=== PATIENT | male | born 1965 | race Caucasian/White ===

== ENCOUNTER 2020-10-25 13:45 | Inpatient (IN) ==
[2020-10-25] MEDS ORDERED: *HR* OxyCODONE/APAP 10/325 TABLET PO PRN (16:35)
[2020-10-25] MEDS ORDERED: Fluticasone Propionate Nasal 50 MCG/SPRAY BOTTLE NS PRN (16:35)
[2020-10-25] MEDS ORDERED: Nystatin Cream 15 GM TUBE TP PRN (16:35)
[2020-10-25] MEDS ORDERED: NON-FORMULARY MEDICATION 1 EACH EACH (Olopatadine Hcl [Pataday] 2.5 ML Drops) BOTH EYES PRN (16:35)
[2020-10-25] MEDS ORDERED: Dextrose Gel 15 GM/37.5 ML TUBE PO PRN ×2 (16:39)
[2020-10-25] MEDS ORDERED: *HR* Dextrose 50 % in Water (Vial) 50 ML VIAL IVP PRN (16:39)
[2020-10-25] MEDS ORDERED: D5% in Water 1,000 ML IVC PRN (16:39)
[2020-10-25] MEDS: Cholecalciferol (D-3) 1,000 UNIT (25MCG) TABLET PO SCH (17:19)
[2020-10-25 17:43] LABS: INR 2.1; Prothrombin Time 23.9 Seconds (9.4-12.1)
[2020-10-25] MEDS ORDERED: Warfarin perPT PO PRN (18:00)
[2020-10-25] MEDS ORDERED: Warfarin 5 MG, Warfarin 2.5 MG PO SCH (18:30)
[2020-10-25] MEDS: Sucralfate 1 GM TABLET PO SCH (20:59)
[2020-10-25] MEDS ORDERED: *HR* Glimepiride 4 MG TABLET PO SCH (21:00)
[2020-10-25] MEDS: Latanoprost 2.5 ML BOTTLE BOTH EYES SCH (21:01)
[2020-10-25] MEDS: Ondansetron ODT 4 MG TAB.RAPDIS SL PRN (23:12)
[2020-10-26 07:02] LABS: Basophils % 0.7 %; Eosinophils # 0.1 K/mcL (0.0-0.6); Eosinophils % 2.8 %; Hematocrit 37.6 % (37.5-50.1); Hemoglobin 11.9 g/dL (12.9-16.9); Immature Granulocytes % 0.4 % (0-4); Lymphocytes # 1.3 K/mcL (0.6-4.6); Lymphocytes % 27.5 %; Mean Corpuscular HGB Conc 31.6 g/dL (31.6-35.5); Mean Corpuscular Hemoglobin 32.2 pg (28.0-33.3); Mean Corpuscular Volume 101.9 fL (83.0-100.0); Mean Platelet Volume 8.8 fL (9.4-12.4); Monocytes # 0.6 K/mcL (0.0-1.3); Neutrophils # 2.6 K/mcL (1.6-8.9); Platelet Count 233 K/mcL (140-400); Red Blood Count 3.69 M/mcL (4.19-5.50); Red Cell Distribution Width 14.9 % (11.5-14.5); Segmented Neutrophils % 56.6 %; White Blood Count 4.6 K/mcL (4.3-11.1)
[2020-10-26 07:08] LABS: INR 2.1; Prothrombin Time 23.7 Seconds (9.4-12.1)
[2020-10-26 07:31] LABS: Calcium 8.5 mg/dL (8.6-10.3)
[2020-10-26] MEDS: Insulin LISPRO 300 UNITS/3 ML VIAL SUBQ SCH ×3 (08:33→16:32)
[2020-10-26] MEDS: Sucralfate 1 GM TABLET PO SCH ×4 (08:37→20:25)
[2020-10-26] MEDS: allopurinoL 100 MG TABLET PO SCH (08:37)
[2020-10-26] MEDS: Aspirin Enteric Coated 81 MG Tablet PO SCH (08:37)
[2020-10-26] MEDS: Loratadine 10 MG TABLET PO SCH (08:38)
[2020-10-26] MEDS: *HR* Glimepiride 2 MG TABLET PO SCH ×2 (08:39→17:10)
[2020-10-26] MEDS ORDERED: Furosemide 40 MG TABLET PO SCH (09:00)
[2020-10-26] MEDS ORDERED: *HR* OxyCODONE/APAP 10/325 TABLET PO PRN (10:52)
[2020-10-26] MEDS ORDERED: *HR* Warfarin 3 MG TABLET PO ONE (18:00)
[2020-10-26] MEDS ORDERED: *HR* OxyCODONE Immed Rel 5 MG TABLET PO PRN (20:14)
[2020-10-26] MEDS: Latanoprost 2.5 ML BOTTLE BOTH EYES SCH (20:26)
[2020-10-27 06:58] LABS: INR 2.1; Prothrombin Time 23.8 Seconds (9.4-12.1)
[2020-10-27] MEDS: Loratadine 10 MG TABLET PO SCH (08:45)
[2020-10-27] MEDS: Aspirin Enteric Coated 81 MG Tablet PO SCH (08:46)
[2020-10-27] MEDS: *HR* Glimepiride 2 MG TABLET PO SCH (08:46)
[2020-10-27] MEDS: Furosemide 20 MG TABLET PO SCH (08:46)
[2020-10-27] MEDS: allopurinoL 100 MG TABLET PO SCH (08:46)
[2020-10-27] MEDS: Insulin LISPRO 300 UNITS/3 ML VIAL SUBQ SCH ×3 (08:47→17:00)
[2020-10-27] MEDS: Sucralfate 1 GM TABLET PO SCH ×4 (09:50→21:51)
[2020-10-27] MEDS: *HR* OxyCODONE Immed Rel 5 MG TABLET PO PRN ×2 (09:55→21:51)
[2020-10-27] MEDS ORDERED: *HR* Warfarin 3 MG TABLET PO ONE (18:00)
[2020-10-27] MEDS: Latanoprost 2.5 ML BOTTLE BOTH EYES SCH (21:42)
[2020-10-28] MEDS: Sucralfate 1 GM TABLET PO SCH ×4 (05:32→21:28)
[2020-10-28 06:54] LABS: INR 1.9; Prothrombin Time 21.3 Seconds (9.4-12.1)
[2020-10-28 07:02] LABS: Alanine Aminotransferase 22 Units/L (7-52); Albumin 3.1 g/dL (3.5-5.7); Alkaline Phosphatase 95 Units/L (34-104); Aspartate Amino Transferase 21 Units/L (13-39); BUN/Creatinine Ratio 17 (6-26); Bilirubin,Total 0.7 mg/dL (0.3-1.0); Blood Urea Nitrogen 23 mg/dL (6-20); Calcium 8.5 mg/dL (8.6-10.3); Carbon Dioxide 38 mEq/L (23-29); Chloride 103 mEq/L (98-107); Globulin 3.2 g/dL (2.4-3.5); Glucose 76 mg/dL (70-105); Osmolality,Calculated 300 (280-300); Potassium 4.1 mEq/L (3.5-5.1); Sodium 144 mEq/L (136-145); Total Protein 6.3 g/dL (6.4-8.9); eGFR For African Americans > 60 (> 60); eGFR For Non-African Americans 54 (> 60)
[2020-10-28] MEDS: Insulin LISPRO 300 UNITS/3 ML VIAL SUBQ SCH (07:43)
[2020-10-28] MEDS: allopurinoL 100 MG TABLET PO SCH (08:53)
[2020-10-28] MEDS: Furosemide 20 MG TABLET PO SCH (08:54)
[2020-10-28] MEDS: Loratadine 10 MG TABLET PO SCH (08:54)
[2020-10-28] MEDS: Aspirin Enteric Coated 81 MG Tablet PO SCH (08:55)
[2020-10-28] MEDS ORDERED: *HR* Warfarin 3 MG TABLET PO ONE (18:00)
[2020-10-28] MEDS: *HR* OxyCODONE Immed Rel 5 MG TABLET PO PRN (19:52)
[2020-10-28] MEDS: Latanoprost 2.5 ML BOTTLE BOTH EYES SCH (19:52)
[2020-10-29] MEDS: Sucralfate 1 GM TABLET PO SCH ×4 (06:02→22:22)
[2020-10-29 07:30] LABS: Magnesium 1.6 mg/dL (1.6-2.6); Phosphorous 1.6 mg/dL (2.7-4.5)
[2020-10-29 08:01] LABS: INR 1.8; Prothrombin Time 20.5 Seconds (9.4-12.1)
[2020-10-29] MEDS: Aspirin Enteric Coated 81 MG Tablet PO SCH (08:30)
[2020-10-29] MEDS: Furosemide 40 MG TABLET PO SCH (08:30)
[2020-10-29] MEDS: allopurinoL 100 MG TABLET PO SCH (08:31)
[2020-10-29] MEDS: *HR* OxyCODONE Immed Rel 5 MG TABLET PO PRN ×2 (08:31→20:29)
[2020-10-29] MEDS: DilTIAZem CD (24hr) 240 MG CAP.ER.24H PO SCH (08:32)
[2020-10-29] MEDS: Loratadine 10 MG TABLET PO SCH (08:32)
[2020-10-29 09:28] LABS: Folate 5.3 ng/mL (3.0-16.0)
[2020-10-29] MEDS ORDERED: Furosemide 40 MG TABLET PO ONE (14:46)
[2020-10-29] MEDS ORDERED: Warfarin 5 MG, Warfarin 2.5 MG PO ONE (18:00)
[2020-10-29] MEDS: Latanoprost 2.5 ML BOTTLE BOTH EYES SCH (20:08)
[2020-10-30] MEDS: Ondansetron ODT 4 MG TAB.RAPDIS SL PRN (03:33)
[2020-10-30] MEDS ORDERED: GI Cocktail 40 ML EACH PO ONE (03:56)
[2020-10-30 07:10] LABS: INR 1.8; Prothrombin Time 20.3 Seconds (9.4-12.1)
[2020-10-30] MEDS: Aspirin Enteric Coated 81 MG Tablet PO SCH (08:10)
[2020-10-30] MEDS: *HR* OxyCODONE Immed Rel 5 MG TABLET PO PRN ×2 (08:11→20:25)
[2020-10-30] MEDS: Sucralfate 1 GM TABLET PO SCH ×4 (08:11→20:25)
[2020-10-30] MEDS: DilTIAZem CD (24hr) 240 MG CAP.ER.24H PO SCH (08:11)
[2020-10-30] MEDS: allopurinoL 100 MG TABLET PO SCH (08:12)
[2020-10-30] MEDS: Loratadine 10 MG TABLET PO SCH (08:12)
[2020-10-30] MEDS: Furosemide 40 MG TABLET PO SCH (08:12)
[2020-10-30] MEDS ORDERED: Warfarin 5 MG, Warfarin 2.5 MG PO ONE (18:00)
[2020-10-30] MEDS ORDERED: *HR* Warfarin 7.5 MG TABLET PO ONE (18:00)
[2020-10-30] MEDS: Latanoprost 2.5 ML BOTTLE BOTH EYES SCH (20:26)
[2020-10-31] MEDS: Aspirin Enteric Coated 81 MG Tablet PO SCH (08:04)
[2020-10-31] MEDS: Loratadine 10 MG TABLET PO SCH (08:05)
[2020-10-31] MEDS: Sucralfate 1 GM TABLET PO SCH ×4 (08:05→20:02)
[2020-10-31] MEDS: allopurinoL 100 MG TABLET PO SCH (08:05)
[2020-10-31] MEDS: Furosemide 40 MG TABLET PO SCH (08:05)
[2020-10-31] MEDS: DilTIAZem CD (24hr) 240 MG CAP.ER.24H PO SCH (08:05)
[2020-10-31 08:40] LABS: INR 1.8; Prothrombin Time 20.1 Seconds (9.4-12.1)
[2020-10-31] MEDS: *HR* OxyCODONE Immed Rel 5 MG TABLET PO PRN ×2 (11:28→23:41)
[2020-10-31] MEDS ORDERED: Warfarin 5 MG, Warfarin 2.5 MG PO ONE (18:00)
[2020-10-31] MEDS: Latanoprost 2.5 ML BOTTLE BOTH EYES SCH (20:11)
[2020-11-01] MEDS: Loratadine 10 MG TABLET PO SCH (07:32)
[2020-11-01] MEDS: Furosemide 40 MG TABLET PO SCH (07:32)
[2020-11-01] MEDS: DilTIAZem CD (24hr) 240 MG CAP.ER.24H PO SCH (07:32)
[2020-11-01] MEDS: allopurinoL 100 MG TABLET PO SCH (07:32)
[2020-11-01] MEDS: Sucralfate 1 GM TABLET PO SCH ×4 (07:32→20:14)
[2020-11-01] MEDS: Aspirin Enteric Coated 81 MG Tablet PO SCH (07:32)
[2020-11-01 08:28] LABS: Basophils % 0.5 %; Eosinophils # 0.1 K/mcL (0.0-0.6); Eosinophils % 2.2 %; Hematocrit 41.6 % (37.5-50.1); Immature Granulocytes % 0.4 % (0-4); Lymphocytes # 1.2 K/mcL (0.6-4.6); Lymphocytes % 22.6 %; Mean Corpuscular HGB Conc 31.3 g/dL (31.6-35.5); Mean Corpuscular Volume 102.5 fL (83.0-100.0); Mean Platelet Volume 9.2 fL (9.4-12.4); Monocytes # 0.5 K/mcL (0.0-1.3); Monocytes % 9.5 %; Neutrophils # 3.6 K/mcL (1.6-8.9); Platelet Count 198 K/mcL (140-400); Red Blood Count 4.06 M/mcL (4.19-5.50); Red Cell Distribution Width 14.9 % (11.5-14.5); Segmented Neutrophils % 64.8 %; White Blood Count 5.5 K/mcL (4.3-11.1)
[2020-11-01 08:52] LABS: INR 1.7; Prothrombin Time 19.9 Seconds (9.4-12.1)
[2020-11-01 08:53] LABS: BUN/Creatinine Ratio 13 (6-26); Blood Urea Nitrogen 17 mg/dL (6-20); Carbon Dioxide 38 mEq/L (23-29); Chloride 101 mEq/L (98-107); Glucose 121 mg/dL (70-105); Osmolality,Calculated 295 (280-300); Potassium 4.1 mEq/L (3.5-5.1); Sodium 141 mEq/L (136-145); eGFR For African Americans > 60 (> 60); eGFR For Non-African Americans 58 (> 60)
[2020-11-01 08:57] LABS: Calcium 8.7 mg/dL (8.6-10.3)
[2020-11-01] MEDS: *HR* OxyCODONE Immed Rel 15 MG TABLET PO PRN ×2 (11:22→20:18)
[2020-11-01 13:38] LABS: Estimated Average Glucose 131 mg/dl; Hemoglobin A1C 6.2 %
[2020-11-01] MEDS: Cholecalciferol (D-3) 1,000 UNIT (25MCG) TABLET PO SCH (17:39)
[2020-11-01] MEDS ORDERED: *HR* Warfarin 2 MG TABLET PO ONE (18:00)
[2020-11-01] MEDS: Latanoprost 2.5 ML BOTTLE BOTH EYES SCH (20:24)
[2020-11-02] MEDS: Sucralfate 1 GM TABLET PO SCH ×3 (06:11→14:57)
[2020-11-02 06:29] VITALS: BP 115/67
[2020-11-02 06:43] LABS: INR 1.7; Prothrombin Time 19.9 Seconds (9.4-12.1)
[2020-11-02] MEDS ORDERED: Furosemide 40 MG TABLET PO SCH (09:00)
[2020-11-02] MEDS ORDERED: Vitamin B Complex/Vit C/Vit E 1 EACH TABLET PO SCH (09:00)
[2020-11-02] MEDS: Aspirin Enteric Coated 81 MG Tablet PO SCH (09:02)
[2020-11-02] MEDS: Loratadine 10 MG TABLET PO SCH (09:03)
[2020-11-02] MEDS: allopurinoL 100 MG TABLET PO SCH (09:04)
[2020-11-02] MEDS: DilTIAZem CD (24hr) 240 MG CAP.ER.24H PO SCH (09:04)
[2020-11-02 13:12] LABS: Basophils % 0.3 %; Eosinophils # 0.1 K/mcL (0.0-0.6); Hematocrit 42.3 % (37.5-50.1); Hemoglobin 13.3 g/dL (12.9-16.9); Immature Granulocytes % 0.5 % (0-4); Lymphocytes % 16.6 %; Mean Corpuscular HGB Conc 31.4 g/dL (31.6-35.5); Mean Corpuscular Volume 101.7 fL (83.0-100.0); Mean Platelet Volume 8.9 fL (9.4-12.4); Monocytes # 0.6 K/mcL (0.0-1.3); Neutrophils # 4.2 K/mcL (1.6-8.9); Platelet Count 194 K/mcL (140-400); Red Blood Count 4.16 M/mcL (4.19-5.50); Red Cell Distribution Width 15.1 % (11.5-14.5); Segmented Neutrophils % 70.6 %; White Blood Count 5.9 K/mcL (4.3-11.1)
[2020-11-02 13:26] LABS: Alanine Aminotransferase 23 Units/L (7-52); Albumin 3.1 g/dL (3.5-5.7); Alkaline Phosphatase 111 Units/L (34-104); Aspartate Amino Transferase 20 Units/L (13-39); BUN/Creatinine Ratio 13 (6-26); Bilirubin,Total 0.7 mg/dL (0.3-1.0); Blood Urea Nitrogen 17 mg/dL (6-20); Calcium 8.5 mg/dL (8.6-10.3); Carbon Dioxide 37 mEq/L (23-29); Chloride 100 mEq/L (98-107); Globulin 3.1 g/dL (2.4-3.5); Glucose 140 mg/dL (70-105); Osmolality,Calculated 296 (280-300); Phosphorous 3.1 mg/dL (2.7-4.5); Potassium 3.8 mEq/L (3.5-5.1); Sodium 141 mEq/L (136-145); Total Protein 6.2 g/dL (6.4-8.9); eGFR For African Americans > 60 (> 60); eGFR For Non-African Americans 56 (> 60)
[2020-11-02] MEDS: *HR* OxyCODONE Immed Rel 15 MG TABLET PO PRN (15:02)
[2020-11-02] MEDS ORDERED: Furosemide 40 MG TABLET PO ONE (17:58)
[2020-11-02] MEDS ORDERED: *HR* Warfarin 2 MG TABLET PO ONE (18:00)
== END 2020-11-02 17:40 | disposition home health service (06) | DRG 945 ==
LOC: INPPIK 16:19
PROVIDERS: ADMIT Family Medicine; ATTEND Family Medicine

== ENCOUNTER 2021-03-14 17:21 | Inpatient (IN) ==
[2021-03-14] MEDS ORDERED: Fluticasone Propionate Nasal 50 MCG/SPRAY BOTTLE NS PRN (19:55)
[2021-03-14] MEDS ORDERED: *HR* Glimepiride 4 MG TABLET PO PRN (19:55)
[2021-03-14] MEDS ORDERED: *HR* Warfarin 7.5 MG TABLET PO ONE (20:45)
[2021-03-14] MEDS: acetaZOLAMIDE 250 MG TABLET PO SCH (21:06)
[2021-03-14] MEDS: Lactulose Oral Soln 20 GM/30 ML UDC PO SCH (21:06)
[2021-03-14] MEDS: Metoprolol XL (24 HR) Succ 25 MG TAB.ER.24H PO SCH (21:06)
[2021-03-14] MEDS: Sucralfate 1 GM TABLET PO SCH (21:07)
[2021-03-14] MEDS: hydrALAZINE 25 MG TABLET PO SCH (21:07)
[2021-03-14] MEDS: Cholecalciferol (D-3) 1,000 UNIT (25MCG) TABLET PO SCH (21:13)
[2021-03-15 06:21] LABS: Basophils % 0.6 %; Eosinophils # 0.1 K/mcL (0.0-0.6); Eosinophils % 2.7 %; Hematocrit 38.7 % (37.5-50.1); Hemoglobin 11.6 g/dL (12.9-16.9); Immature Granulocytes % 0.2 % (0-4); Lymphocytes # 1.2 K/mcL (0.6-4.6); Lymphocytes % 23.1 %; Mean Corpuscular Hemoglobin 29.1 pg (28.0-33.3); Mean Corpuscular Volume 97.2 fL (83.0-100.0); Monocytes # 0.7 K/mcL (0.0-1.3); Monocytes % 13.8 %; Neutrophils # 3.1 K/mcL (1.6-8.9); Platelet Count 178 K/mcL (140-400); Red Blood Count 3.98 M/mcL (4.19-5.50); Red Cell Distribution Width 16.8 % (11.5-14.5); Segmented Neutrophils % 59.6 %; White Blood Count 5.2 K/mcL (4.3-11.1)
[2021-03-15 06:27] LABS: INR 1.7; Prothrombin Time 19.1 Seconds (9.4-12.1)
[2021-03-15 06:39] LABS: BUN/Creatinine Ratio 16 (6-26); Blood Urea Nitrogen 22 mg/dL (6-20); Calcium 9.1 mg/dL (8.6-10.3); Carbon Dioxide 34 mEq/L (23-29); Chloride 104 mEq/L (98-107); Glucose 121 mg/dL (70-105); Osmolality,Calculated 299 (280-300); Sodium 142 mEq/L (136-145); eGFR For African Americans > 60 (> 60); eGFR For Non-African Americans 55 (> 60)
[2021-03-15] MEDS: Vitamin E 200 UNIT (90MG) CAPSULE PO SCH (08:22)
[2021-03-15] MEDS: Aspirin Enteric Coated 81 MG Tablet PO SCH (08:22)
[2021-03-15] MEDS: Sucralfate 1 GM TABLET PO SCH ×4 (08:23→21:19)
[2021-03-15] MEDS: Vitamin B Complex/Vit C/Vit E 1 EACH TABLET PO SCH (08:25)
[2021-03-15] MEDS: acetaZOLAMIDE 250 MG TABLET PO SCH ×2 (08:26→21:19)
[2021-03-15] MEDS: allopurinoL 100 MG TABLET PO SCH (08:26)
[2021-03-15] MEDS: Lactulose Oral Soln 20 GM/30 ML UDC PO SCH ×2 (08:28→21:20)
[2021-03-15] MEDS: hydrALAZINE 25 MG TABLET PO SCH ×2 (10:21→14:11)
[2021-03-15] MEDS: Metoprolol XL (24 HR) Succ 25 MG TAB.ER.24H PO SCH ×3 (10:37→21:20)
[2021-03-15] MEDS: Furosemide 40 MG TABLET PO SCH (10:51)
[2021-03-15] MEDS: Nystatin POWDER 30 GM BOTTLE TP SCH ×3 (10:51→21:20)
[2021-03-15] MEDS: DilTIAZem CD (24hr) 240 MG CAP.ER.24H PO SCH (11:10)
[2021-03-15] MEDS: *HR* OxyCODONE/APAP 10/325 TABLET PO PRN ×2 (11:14→21:19)
[2021-03-15] MEDS ORDERED: *HR* Warfarin 7.5 MG TABLET PO ONE (18:00)
[2021-03-15] MEDS ORDERED: Warfarin perPT PO PRN (18:00)
[2021-03-16 07:23] LABS: INR 1.5
[2021-03-16] MEDS: Aspirin Enteric Coated 81 MG Tablet PO SCH (08:43)
[2021-03-16] MEDS: DilTIAZem CD (24hr) 240 MG CAP.ER.24H PO SCH (08:44)
[2021-03-16] MEDS: Sucralfate 1 GM TABLET PO SCH ×4 (08:44→20:37)
[2021-03-16] MEDS: allopurinoL 100 MG TABLET PO SCH (08:44)
[2021-03-16] MEDS: acetaZOLAMIDE 250 MG TABLET PO SCH ×2 (08:44→20:37)
[2021-03-16] MEDS: Vitamin E 200 UNIT (90MG) CAPSULE PO SCH (08:45)
[2021-03-16] MEDS: Metoprolol XL (24 HR) Succ 25 MG TAB.ER.24H PO SCH ×2 (08:45→20:37)
[2021-03-16] MEDS: Furosemide 40 MG TABLET PO SCH (08:45)
[2021-03-16] MEDS: Lactulose Oral Soln 20 GM/30 ML UDC PO SCH ×2 (08:46→20:36)
[2021-03-16] MEDS: Vitamin B Complex/Vit C/Vit E 1 EACH TABLET PO SCH (08:46)
[2021-03-16] MEDS: Nystatin POWDER 30 GM BOTTLE TP SCH ×3 (08:54→20:38)
[2021-03-16] MEDS: *HR* OxyCODONE/APAP 10/325 TABLET PO PRN (15:35)
[2021-03-16] MEDS ORDERED: *HR* Warfarin 5 MG TABLET PO ONE (18:00)
[2021-03-17 08:01] LABS: INR 1.5; Prothrombin Time 16.9 Seconds (9.4-12.1)
[2021-03-17] MEDS: *HR* OxyCODONE/APAP 10/325 TABLET PO PRN ×2 (08:32→17:00)
[2021-03-17] MEDS: acetaZOLAMIDE 250 MG TABLET PO SCH ×2 (08:32→20:04)
[2021-03-17] MEDS: DilTIAZem CD (24hr) 240 MG CAP.ER.24H PO SCH (08:32)
[2021-03-17] MEDS: Vitamin E 200 UNIT (90MG) CAPSULE PO SCH (08:33)
[2021-03-17] MEDS: Metoprolol XL (24 HR) Succ 25 MG TAB.ER.24H PO SCH ×2 (08:33→20:04)
[2021-03-17] MEDS: Sucralfate 1 GM TABLET PO SCH ×4 (08:33→21:00)
[2021-03-17] MEDS: Lactulose Oral Soln 20 GM/30 ML UDC PO SCH ×2 (08:33→20:04)
[2021-03-17] MEDS: Aspirin Enteric Coated 81 MG Tablet PO SCH (08:33)
[2021-03-17] MEDS: Vitamin B Complex/Vit C/Vit E 1 EACH TABLET PO SCH (08:33)
[2021-03-17] MEDS: Furosemide 40 MG TABLET PO SCH (08:33)
[2021-03-17] MEDS: allopurinoL 100 MG TABLET PO SCH (08:34)
[2021-03-17] MEDS: Nystatin POWDER 30 GM BOTTLE TP SCH ×3 (08:34→20:07)
[2021-03-17] MEDS ORDERED: *HR* Warfarin 5 MG TABLET PO ONE (18:00)
[2021-03-18] MEDS: Lactulose Oral Soln 20 GM/30 ML UDC PO SCH ×2 (08:19→21:09)
[2021-03-18] MEDS: Metoprolol XL (24 HR) Succ 25 MG TAB.ER.24H PO SCH ×2 (08:19→21:09)
[2021-03-18] MEDS: Vitamin B Complex/Vit C/Vit E 1 EACH TABLET PO SCH (08:19)
[2021-03-18] MEDS: Vitamin E 200 UNIT (90MG) CAPSULE PO SCH (08:19)
[2021-03-18] MEDS: allopurinoL 100 MG TABLET PO SCH (08:20)
[2021-03-18] MEDS: Furosemide 40 MG TABLET PO SCH (08:20)
[2021-03-18] MEDS: acetaZOLAMIDE 250 MG TABLET PO SCH ×2 (08:20→21:09)
[2021-03-18] MEDS: DilTIAZem CD (24hr) 240 MG CAP.ER.24H PO SCH (08:21)
[2021-03-18] MEDS: Sucralfate 1 GM TABLET PO SCH ×4 (08:21→21:09)
[2021-03-18] MEDS: Aspirin Enteric Coated 81 MG Tablet PO SCH (08:21)
[2021-03-18] MEDS: Nystatin POWDER 30 GM BOTTLE TP SCH ×3 (08:21→21:09)
[2021-03-18] MEDS: *HR* OxyCODONE/APAP 10/325 TABLET PO PRN ×2 (08:27→17:24)
[2021-03-18 08:35] LABS: INR 1.6; Prothrombin Time 18.7 Seconds (9.4-12.1)
[2021-03-18] MEDS ORDERED: *HR* Warfarin 5 MG TABLET PO ONE (18:00)
[2021-03-19 08:37] LABS: INR 1.7; Prothrombin Time 19.8 Seconds (9.4-12.1)
[2021-03-19] MEDS: Lactulose Oral Soln 20 GM/30 ML UDC PO SCH ×2 (11:11→20:34)
[2021-03-19] MEDS: Furosemide 40 MG TABLET PO SCH (11:12)
[2021-03-19] MEDS: allopurinoL 100 MG TABLET PO SCH (11:12)
[2021-03-19] MEDS: Metoprolol XL (24 HR) Succ 25 MG TAB.ER.24H PO SCH ×2 (11:12→20:42)
[2021-03-19] MEDS: *HR* OxyCODONE/APAP 10/325 TABLET PO PRN ×2 (11:12→20:34)
[2021-03-19] MEDS: acetaZOLAMIDE 250 MG TABLET PO SCH ×2 (11:13→20:33)
[2021-03-19] MEDS: Vitamin E 200 UNIT (90MG) CAPSULE PO SCH (11:13)
[2021-03-19] MEDS: Aspirin Enteric Coated 81 MG Tablet PO SCH (11:13)
[2021-03-19] MEDS: DilTIAZem CD (24hr) 240 MG CAP.ER.24H PO SCH (11:13)
[2021-03-19] MEDS: Vitamin B Complex/Vit C/Vit E 1 EACH TABLET PO SCH (11:13)
[2021-03-19] MEDS: Sucralfate 1 GM TABLET PO SCH ×4 (11:14→20:33)
[2021-03-19] MEDS: Nystatin POWDER 30 GM BOTTLE TP SCH ×3 (11:25→20:34)
[2021-03-19] MEDS ORDERED: *HR* Warfarin 5 MG TABLET PO ONE (18:00)
[2021-03-20 07:37] LABS: Prothrombin Time 22.7 Seconds (9.4-12.1)
[2021-03-20] MEDS: DilTIAZem CD (24hr) 240 MG CAP.ER.24H PO SCH (09:19)
[2021-03-20] MEDS: Lactulose Oral Soln 20 GM/30 ML UDC PO SCH ×2 (09:19→21:15)
[2021-03-20] MEDS: Sucralfate 1 GM TABLET PO SCH ×4 (09:19→21:15)
[2021-03-20] MEDS: *HR* OxyCODONE/APAP 10/325 TABLET PO PRN ×2 (09:19→21:15)
[2021-03-20] MEDS: Metoprolol XL (24 HR) Succ 25 MG TAB.ER.24H PO SCH ×2 (09:19→21:22)
[2021-03-20] MEDS: Vitamin B Complex/Vit C/Vit E 1 EACH TABLET PO SCH (09:20)
[2021-03-20] MEDS: Furosemide 40 MG TABLET PO SCH (09:20)
[2021-03-20] MEDS: Aspirin Enteric Coated 81 MG Tablet PO SCH (09:20)
[2021-03-20] MEDS: acetaZOLAMIDE 250 MG TABLET PO SCH ×2 (09:20→21:15)
[2021-03-20] MEDS: Vitamin E 200 UNIT (90MG) CAPSULE PO SCH (09:20)
[2021-03-20] MEDS: allopurinoL 100 MG TABLET PO SCH (09:20)
[2021-03-20] MEDS: Nystatin POWDER 30 GM BOTTLE TP SCH ×3 (09:23→21:21)
[2021-03-20 12:27] LABS: Basophils % 0.4 %; Eosinophils # 0.1 K/mcL (0.0-0.6); Eosinophils % 2.3 %; Hematocrit 39.3 % (37.5-50.1); Hemoglobin 11.6 g/dL (12.9-16.9); Immature Granulocytes % 0.4 % (0-4); Lymphocytes # 0.9 K/mcL (0.6-4.6); Lymphocytes % 16.2 %; Mean Corpuscular HGB Conc 29.5 g/dL (31.6-35.5); Mean Corpuscular Hemoglobin 29.2 pg (28.0-33.3); Mean Platelet Volume 8.8 fL (9.4-12.4); Monocytes # 0.6 K/mcL (0.0-1.3); Monocytes % 10.1 %; Neutrophils # 3.9 K/mcL (1.6-8.9); Platelet Count 176 K/mcL (140-400); Red Blood Count 3.97 M/mcL (4.19-5.50); Red Cell Distribution Width 16.6 % (11.5-14.5); Segmented Neutrophils % 70.6 %; White Blood Count 5.6 K/mcL (4.3-11.1)
[2021-03-20 12:33] LABS: ABG Base Excess 1 mEq/L (-2 to 3); ABG HCO3 30 mEq/L (21-27); ABG Oxygen Saturation 93 % (95-98); ABG PCO2 69 mmHg (35-45); ABG PH 7.25 pH Units (7.32-7.45); ABG PO2 79 mmHg (85-104); ABG TCO2 32 mEq/L (20-26)
[2021-03-20 12:46] LABS: Calcium 9.2 mg/dL (8.6-10.3); Potassium 4.8 mEq/L (3.5-5.1)
[2021-03-20 14:24] LABS: ABG Base Excess 1 mEq/L (-2 to 3); ABG HCO3 29 mEq/L (21-27); ABG Oxygen Saturation 93 % (95-98); ABG PCO2 60 mmHg (35-45); ABG PH 7.29 pH Units (7.32-7.45); ABG PO2 78 mmHg (85-104); ABG TCO2 31 mEq/L (20-26); Blood Gas Modality NIV; Blood Gas VT 500 cc
[2021-03-20] MEDS ORDERED: *HR* Warfarin 5 MG TABLET PO ONE (18:00)
[2021-03-20] MEDS ORDERED: Albumin 25% 25gram/100mL 25 GM/100 ML IV.SOLN IVPB ONE (20:22)
[2021-03-21] MEDS ORDERED: 0.9 % Sodium Chloride 250 ML IVC ONE (01:06)
[2021-03-21] MEDS: allopurinoL 100 MG TABLET PO SCH (07:48)
[2021-03-21] MEDS: acetaZOLAMIDE 250 MG TABLET PO SCH ×2 (07:48→21:58)
[2021-03-21] MEDS: Lactulose Oral Soln 20 GM/30 ML UDC PO SCH ×3 (07:48→21:59)
[2021-03-21] MEDS: Vitamin E 200 UNIT (90MG) CAPSULE PO SCH (07:49)
[2021-03-21] MEDS: Furosemide 40 MG TABLET PO SCH (07:49)
[2021-03-21] MEDS: Sucralfate 1 GM TABLET PO SCH ×4 (07:49→21:58)
[2021-03-21] MEDS: Vitamin B Complex/Vit C/Vit E 1 EACH TABLET PO SCH (07:49)
[2021-03-21 07:50] LABS: INR 2.1; Prothrombin Time 23.3 Seconds (9.4-12.1)
[2021-03-21] MEDS: Nystatin POWDER 30 GM BOTTLE TP SCH ×3 (07:50→21:59)
[2021-03-21] MEDS: Aspirin Enteric Coated 81 MG Tablet PO SCH (07:50)
[2021-03-21] MEDS: DilTIAZem CD (24hr) 240 MG CAP.ER.24H PO SCH (07:50)
[2021-03-21] MEDS: Metoprolol XL (24 HR) Succ 25 MG TAB.ER.24H PO SCH ×2 (07:51→21:50)
[2021-03-21 08:13] LABS: ABG Base Excess 1 mEq/L (-2 to 3); ABG HCO3 29 mEq/L (21-27); ABG Oxygen Saturation 94 % (95-98); ABG PCO2 60 mmHg (35-45); ABG PH 7.28 pH Units (7.32-7.45); ABG PO2 81 mmHg (85-104); ABG TCO2 31 mEq/L (20-26)
[2021-03-21] MEDS: Ipratropium/Albuterol Neb 3 ML IH SCH ×3 (09:05→21:38)
[2021-03-21] MEDS: *HR* OxyCODONE/APAP 10/325 TABLET PO PRN ×2 (14:30→23:01)
[2021-03-21] MEDS ORDERED: *HR* Warfarin 7.5 MG TABLET PO ONE (18:00)
[2021-03-21] MEDS: Cholecalciferol (D-3) 1,000 UNIT (25MCG) TABLET PO SCH (22:02)
[2021-03-22] MEDS: Ipratropium/Albuterol Neb 3 ML IH SCH ×4 (04:11→20:32)
[2021-03-22] MEDS: Sucralfate 1 GM TABLET PO SCH ×4 (06:36→20:25)
[2021-03-22 08:03] LABS: ABG Base Excess 3 mEq/L (-2 to 3); ABG HCO3 29 mEq/L (21-27); ABG Oxygen Saturation 94 % (95-98); ABG PCO2 54 mmHg (35-45); ABG PH 7.34 pH Units (7.32-7.45); ABG PO2 76 mmHg (85-104); ABG TCO2 31 mEq/L (20-26); Blood Gas Modality BiLevel; Blood Gas VT 500 cc
[2021-03-22 08:22] LABS: INR 1.9; Prothrombin Time 21.6 Seconds (9.4-12.1)
[2021-03-22 09:10] LABS: Basophils % 0.2 %; Eosinophils # 0.2 K/mcL (0.0-0.6); Eosinophils % 4.2 %; Hemoglobin 11.7 g/dL (12.9-16.9); Immature Granulocytes % 0.2 % (0-4); Lymphocytes # 0.9 K/mcL (0.6-4.6); Mean Corpuscular Volume 96.8 fL (83.0-100.0); Mean Platelet Volume 9.1 fL (9.4-12.4); Monocytes # 0.5 K/mcL (0.0-1.3); Monocytes % 12.4 %; Neutrophils # 2.6 K/mcL (1.6-8.9); Platelet Count 190 K/mcL (140-400); Red Blood Count 4.03 M/mcL (4.19-5.50); Red Cell Distribution Width 16.7 % (11.5-14.5); White Blood Count 4.3 K/mcL (4.3-11.1)
[2021-03-22 09:19] LABS: Albumin 3.4 g/dL (3.5-5.7); Albumin/Globulin Ratio 1.1 (1.1-2.2); Bilirubin,Total 0.9 mg/dL (0.3-1.0); Calcium 8.9 mg/dL (8.6-10.3); Globulin 3.2 g/dL (2.4-3.5); Total Protein 6.6 g/dL (6.4-8.9)
[2021-03-22] MEDS: Lactulose Oral Soln 20 GM/30 ML UDC PO SCH ×3 (11:14→20:24)
[2021-03-22] MEDS: Vitamin B Complex/Vit C/Vit E 1 EACH TABLET PO SCH (11:15)
[2021-03-22] MEDS: Furosemide 40 MG TABLET PO SCH (11:16)
[2021-03-22] MEDS: Metoprolol XL (24 HR) Succ 25 MG TAB.ER.24H PO SCH ×2 (11:17→20:24)
[2021-03-22] MEDS: allopurinoL 100 MG TABLET PO SCH (11:17)
[2021-03-22] MEDS: Vitamin E 200 UNIT (90MG) CAPSULE PO SCH (11:17)
[2021-03-22] MEDS: DilTIAZem CD (24hr) 240 MG CAP.ER.24H PO SCH (11:17)
[2021-03-22] MEDS: Aspirin Enteric Coated 81 MG Tablet PO SCH (11:17)
[2021-03-22] MEDS: acetaZOLAMIDE 250 MG TABLET PO SCH (11:35)
[2021-03-22] MEDS ORDERED: *HR* Heparin 5,000 UNIT/ML VIAL SQ SCH (14:00)
[2021-03-22] MEDS: Nystatin POWDER 30 GM BOTTLE TP SCH ×3 (14:54→20:28)
[2021-03-22] MEDS ORDERED: *HR* Warfarin 5 MG TABLET PO ONE (18:00)
[2021-03-22] MEDS: *HR* OxyCODONE/APAP 10/325 TABLET PO PRN (20:24)
[2021-03-23] MEDS: Ipratropium/Albuterol Neb 3 ML IH SCH ×4 (04:26→21:07)
[2021-03-23 07:45] LABS: INR 1.9
[2021-03-23] MEDS: Vitamin B Complex/Vit C/Vit E 1 EACH TABLET PO SCH (09:55)
[2021-03-23] MEDS: Aspirin Enteric Coated 81 MG Tablet PO SCH (09:55)
[2021-03-23] MEDS: Lactulose Oral Soln 20 GM/30 ML UDC PO SCH ×3 (09:55→21:51)
[2021-03-23] MEDS: Vitamin E 200 UNIT (90MG) CAPSULE PO SCH (09:56)
[2021-03-23] MEDS: DilTIAZem CD (24hr) 240 MG CAP.ER.24H PO SCH (09:56)
[2021-03-23] MEDS: allopurinoL 100 MG TABLET PO SCH (09:58)
[2021-03-23] MEDS: Furosemide 40 MG TABLET PO SCH (09:58)
[2021-03-23] MEDS: Nystatin POWDER 30 GM BOTTLE TP SCH ×3 (09:58→21:52)
[2021-03-23] MEDS: Metoprolol XL (24 HR) Succ 25 MG TAB.ER.24H PO SCH ×2 (09:58→21:57)
[2021-03-23] MEDS: Sucralfate 1 GM TABLET PO SCH ×4 (09:58→21:52)
[2021-03-23] MEDS: *HR* OxyCODONE/APAP 10/325 TABLET PO PRN ×2 (11:31→21:52)
[2021-03-23] MEDS ORDERED: Saline Nasal Spray 44 ML BOTTLE NS PRN (17:15)
[2021-03-23] MEDS ORDERED: *HR* Warfarin 5 MG TABLET PO ONE (18:00)
[2021-03-24] MEDS: Ipratropium/Albuterol Neb 3 ML IH SCH ×4 (03:57→21:54)
[2021-03-24 06:50] LABS: Hematocrit 38.2 % (37.5-50.1); Hemoglobin 11.4 g/dL (12.9-16.9); Mean Corpuscular HGB Conc 29.8 g/dL (31.6-35.5); Mean Corpuscular Hemoglobin 28.8 pg (28.0-33.3); Mean Corpuscular Volume 96.5 fL (83.0-100.0); Mean Platelet Volume 9.8 fL (9.4-12.4); Platelet Count 189 K/mcL (140-400); Red Blood Count 3.96 M/mcL (4.19-5.50); Red Cell Distribution Width 16.7 % (11.5-14.5); White Blood Count 4.3 K/mcL (4.3-11.1)
[2021-03-24 07:08] LABS: INR 2.2; Prothrombin Time 25.3 Seconds (9.4-12.1)
[2021-03-24 07:18] LABS: Alanine Aminotransferase 16 Units/L (7-52); Albumin 3.2 g/dL (3.5-5.7); Albumin/Globulin Ratio 1.1 (1.1-2.2); Alkaline Phosphatase 96 Units/L (34-104); Aspartate Amino Transferase 17 Units/L (13-39); BUN/Creatinine Ratio 18 (6-26); Bilirubin,Total 0.7 mg/dL (0.3-1.0); Blood Urea Nitrogen 24 mg/dL (6-20); Calcium 8.9 mg/dL (8.6-10.3); Carbon Dioxide 33 mEq/L (23-29); Chloride 104 mEq/L (98-107); Globulin 2.9 g/dL (2.4-3.5); Glucose 116 mg/dL (70-105); Magnesium 1.9 mg/dL (1.6-2.6); Osmolality,Calculated 301 (280-300); Potassium 4.1 mEq/L (3.5-5.1); Sodium 143 mEq/L (136-145); Total Protein 6.1 g/dL (6.4-8.9); eGFR For African Americans > 60 (> 60); eGFR For Non-African Americans 57 (> 60)
[2021-03-24] MEDS: Vitamin E 200 UNIT (90MG) CAPSULE PO SCH (08:23)
[2021-03-24] MEDS: Lactulose Oral Soln 20 GM/30 ML UDC PO SCH ×3 (08:23→20:21)
[2021-03-24] MEDS: Sucralfate 1 GM TABLET PO SCH ×4 (08:24→20:21)
[2021-03-24] MEDS: DilTIAZem CD (24hr) 240 MG CAP.ER.24H PO SCH (08:24)
[2021-03-24] MEDS: allopurinoL 100 MG TABLET PO SCH (08:24)
[2021-03-24] MEDS: *HR* OxyCODONE/APAP 10/325 TABLET PO PRN ×2 (08:25→18:13)
[2021-03-24] MEDS: Aspirin Enteric Coated 81 MG Tablet PO SCH (08:25)
[2021-03-24] MEDS: Furosemide 40 MG TABLET PO SCH (08:25)
[2021-03-24] MEDS: Vitamin B Complex/Vit C/Vit E 1 EACH TABLET PO SCH (08:26)
[2021-03-24] MEDS: Nystatin POWDER 30 GM BOTTLE TP SCH ×3 (08:32→20:21)
[2021-03-24] MEDS: Metoprolol XL (24 HR) Succ 25 MG TAB.ER.24H PO SCH ×2 (10:59→20:21)
[2021-03-24] MEDS ORDERED: *HR* Warfarin 7.5 MG TABLET PO ONE (18:00)
[2021-03-25] MEDS: Ipratropium/Albuterol Neb 3 ML IH SCH ×4 (04:05→21:00)
[2021-03-25 06:08] LABS: INR 2.5; Prothrombin Time 28.2 Seconds (9.4-12.1)
[2021-03-25] MEDS: Vitamin B Complex/Vit C/Vit E 1 EACH TABLET PO SCH (08:04)
[2021-03-25] MEDS: Vitamin E 200 UNIT (90MG) CAPSULE PO SCH (08:04)
[2021-03-25] MEDS: DilTIAZem CD (24hr) 240 MG CAP.ER.24H PO SCH (08:04)
[2021-03-25] MEDS: Aspirin Enteric Coated 81 MG Tablet PO SCH (08:04)
[2021-03-25] MEDS: allopurinoL 100 MG TABLET PO SCH (08:04)
[2021-03-25] MEDS: Furosemide 40 MG TABLET PO SCH (08:04)
[2021-03-25] MEDS: Sucralfate 1 GM TABLET PO SCH ×4 (08:05→22:28)
[2021-03-25] MEDS: Lactulose Oral Soln 20 GM/30 ML UDC PO SCH ×4 (08:05→22:30)
[2021-03-25] MEDS: Metoprolol XL (24 HR) Succ 25 MG TAB.ER.24H PO SCH ×2 (08:05→22:28)
[2021-03-25] MEDS: Nystatin POWDER 30 GM BOTTLE TP SCH ×3 (08:06→22:30)
[2021-03-25] MEDS: *HR* OxyCODONE/APAP 10/325 TABLET PO PRN ×2 (08:14→16:17)
[2021-03-25] MEDS ORDERED: *HR* Warfarin 7.5 MG TABLET PO ONE (18:00)
[2021-03-26] MEDS: Ipratropium/Albuterol Neb 3 ML IH SCH ×4 (04:33→21:23)
[2021-03-26 06:08] LABS: INR 2.6; Prothrombin Time 29.6 Seconds (9.4-12.1)
[2021-03-26 06:22] LABS: BUN/Creatinine Ratio 15 (6-26); Blood Urea Nitrogen 19 mg/dL (6-20); Calcium 9.1 mg/dL (8.6-10.3); Carbon Dioxide 36 mEq/L (23-29); Chloride 104 mEq/L (98-107); Glucose 121 mg/dL (70-105); Osmolality,Calculated 300 (280-300); Potassium 4.3 mEq/L (3.5-5.1); Sodium 143 mEq/L (136-145); eGFR For African Americans > 60 (> 60); eGFR For Non-African Americans 59 (> 60)
[2021-03-26] MEDS: *HR* OxyCODONE/APAP 10/325 TABLET PO PRN ×2 (08:26→16:56)
[2021-03-26] MEDS: Vitamin E 200 UNIT (90MG) CAPSULE PO SCH (08:26)
[2021-03-26] MEDS: Furosemide 40 MG TABLET PO SCH (08:26)
[2021-03-26] MEDS: Metoprolol XL (24 HR) Succ 25 MG TAB.ER.24H PO SCH ×2 (08:26→21:13)
[2021-03-26] MEDS: allopurinoL 100 MG TABLET PO SCH (08:27)
[2021-03-26] MEDS: Aspirin Enteric Coated 81 MG Tablet PO SCH (08:27)
[2021-03-26] MEDS: Sucralfate 1 GM TABLET PO SCH ×4 (08:27→21:13)
[2021-03-26] MEDS: DilTIAZem CD (24hr) 240 MG CAP.ER.24H PO SCH (08:28)
[2021-03-26] MEDS: Vitamin B Complex/Vit C/Vit E 1 EACH TABLET PO SCH (08:28)
[2021-03-26] MEDS: Lactulose Oral Soln 20 GM/30 ML UDC PO SCH ×4 (08:28→21:14)
[2021-03-26] MEDS: Nystatin POWDER 30 GM BOTTLE TP SCH ×3 (08:39→21:14)
[2021-03-26] MEDS ORDERED: *HR* Warfarin 7.5 MG TABLET PO ONE (18:00)
[2021-03-27] MEDS: Ipratropium/Albuterol Neb 3 ML IH SCH ×2 (04:38→09:27)
[2021-03-27] MEDS: Sucralfate 1 GM TABLET PO SCH ×4 (05:50→20:59)
[2021-03-27] MEDS: *HR* OxyCODONE/APAP 10/325 TABLET PO PRN ×2 (05:50→14:24)
[2021-03-27 08:09] LABS: INR 2.7
[2021-03-27] MEDS: Furosemide 40 MG TABLET PO SCH (08:28)
[2021-03-27] MEDS: Vitamin E 200 UNIT (90MG) CAPSULE PO SCH (08:28)
[2021-03-27] MEDS: DilTIAZem CD (24hr) 240 MG CAP.ER.24H PO SCH (08:28)
[2021-03-27] MEDS: allopurinoL 100 MG TABLET PO SCH (08:29)
[2021-03-27] MEDS: Vitamin B Complex/Vit C/Vit E 1 EACH TABLET PO SCH (08:29)
[2021-03-27] MEDS: Metoprolol XL (24 HR) Succ 25 MG TAB.ER.24H PO SCH ×2 (08:29→20:59)
[2021-03-27] MEDS: Aspirin Enteric Coated 81 MG Tablet PO SCH (08:29)
[2021-03-27] MEDS: Lactulose Oral Soln 20 GM/30 ML UDC PO SCH ×4 (08:32→20:59)
[2021-03-27] MEDS: Nystatin POWDER 30 GM BOTTLE TP SCH ×3 (08:34→21:00)
[2021-03-27] MEDS ORDERED: Ipratropium/Albuterol Neb 3 ML IH PRN (09:47)
[2021-03-27] MEDS ORDERED: *HR* Warfarin 5 MG TABLET PO ONE (18:00)
[2021-03-28] MEDS: Sucralfate 1 GM TABLET PO SCH ×4 (05:58→21:11)
[2021-03-28] MEDS: *HR* OxyCODONE/APAP 10/325 TABLET PO PRN ×2 (05:58→14:39)
[2021-03-28 07:09] LABS: INR 2.5; Prothrombin Time 28.7 Seconds (9.4-12.1)
[2021-03-28 07:16] LABS: BUN/Creatinine Ratio 13 (6-26); Blood Urea Nitrogen 17 mg/dL (6-20); Calcium 9.1 mg/dL (8.6-10.3); Carbon Dioxide 37 mEq/L (23-29); Chloride 101 mEq/L (98-107); Glucose 119 mg/dL (70-105); Osmolality,Calculated 295 (280-300); Potassium 4.8 mEq/L (3.5-5.1); Sodium 141 mEq/L (136-145); eGFR For African Americans > 60 (> 60); eGFR For Non-African Americans 58 (> 60)
[2021-03-28] MEDS: Vitamin B Complex/Vit C/Vit E 1 EACH TABLET PO SCH (09:48)
[2021-03-28] MEDS: DilTIAZem CD (24hr) 240 MG CAP.ER.24H PO SCH (09:48)
[2021-03-28] MEDS: allopurinoL 100 MG TABLET PO SCH (09:48)
[2021-03-28] MEDS: Aspirin Enteric Coated 81 MG Tablet PO SCH (09:48)
[2021-03-28] MEDS: Furosemide 40 MG TABLET PO SCH (09:48)
[2021-03-28] MEDS: Vitamin E 200 UNIT (90MG) CAPSULE PO SCH (09:48)
[2021-03-28] MEDS: Metoprolol XL (24 HR) Succ 25 MG TAB.ER.24H PO SCH ×2 (09:48→21:11)
[2021-03-28] MEDS: Nystatin POWDER 30 GM BOTTLE TP SCH ×3 (09:49→21:12)
[2021-03-28] MEDS: Lactulose Oral Soln 20 GM/30 ML UDC PO SCH ×4 (09:49→21:11)
[2021-03-28] MEDS ORDERED: *HR* Warfarin 7.5 MG TABLET PO ONE (18:00)
[2021-03-28] MEDS: Cholecalciferol (D-3) 1,000 UNIT (25MCG) TABLET PO SCH (21:15)
[2021-03-29 06:13] LABS: INR 2.4; Prothrombin Time 26.9 Seconds (9.4-12.1)
[2021-03-29] MEDS: Sucralfate 1 GM TABLET PO SCH ×4 (08:27→19:54)
[2021-03-29] MEDS: DilTIAZem CD (24hr) 240 MG CAP.ER.24H PO SCH (08:28)
[2021-03-29] MEDS: Aspirin Enteric Coated 81 MG Tablet PO SCH (08:28)
[2021-03-29] MEDS: Vitamin E 200 UNIT (90MG) CAPSULE PO SCH (08:28)
[2021-03-29] MEDS: Lactulose Oral Soln 20 GM/30 ML UDC PO SCH ×4 (08:28→19:54)
[2021-03-29] MEDS: Furosemide 40 MG TABLET PO SCH (08:28)
[2021-03-29] MEDS: Vitamin B Complex/Vit C/Vit E 1 EACH TABLET PO SCH (08:28)
[2021-03-29] MEDS: Metoprolol XL (24 HR) Succ 25 MG TAB.ER.24H PO SCH ×2 (08:28→19:54)
[2021-03-29] MEDS: allopurinoL 100 MG TABLET PO SCH (08:28)
[2021-03-29] MEDS: Nystatin POWDER 30 GM BOTTLE TP SCH ×3 (08:29→19:54)
[2021-03-29] MEDS: *HR* OxyCODONE/APAP 10/325 TABLET PO PRN ×2 (10:26→19:53)
[2021-03-29] MEDS ORDERED: *HR* Warfarin 7.5 MG TABLET PO ONE (18:00)
[2021-03-30 07:28] LABS: Basophils % 0.4 %; Eosinophils # 0.2 K/mcL (0.0-0.6); Eosinophils % 3.4 %; Hematocrit 37.4 % (37.5-50.1); Hemoglobin 11.1 g/dL (12.9-16.9); Lymphocytes # 1.2 K/mcL (0.6-4.6); Lymphocytes % 26.6 %; Mean Corpuscular HGB Conc 29.7 g/dL (31.6-35.5); Mean Corpuscular Hemoglobin 28.8 pg (28.0-33.3); Mean Corpuscular Volume 97.1 fL (83.0-100.0); Mean Platelet Volume 9.1 fL (9.4-12.4); Monocytes # 0.6 K/mcL (0.0-1.3); Monocytes % 13.9 %; Neutrophils # 2.5 K/mcL (1.6-8.9); Platelet Count 208 K/mcL (140-400); Red Blood Count 3.85 M/mcL (4.19-5.50); Red Cell Distribution Width 16.9 % (11.5-14.5); Segmented Neutrophils % 55.7 %; White Blood Count 4.5 K/mcL (4.3-11.1)
[2021-03-30 07:45] LABS: BUN/Creatinine Ratio 12 (6-26); Blood Urea Nitrogen 16 mg/dL (6-20); Calcium 8.9 mg/dL (8.6-10.3); Carbon Dioxide 38 mEq/L (23-29); Chloride 100 mEq/L (98-107); Glucose 110 mg/dL (70-105); Osmolality,Calculated 296 (280-300); Potassium 4.2 mEq/L (3.5-5.1); Sodium 142 mEq/L (136-145); eGFR For African Americans > 60 (> 60); eGFR For Non-African Americans 53 (> 60)
[2021-03-30 07:46] LABS: INR 2.3; Prothrombin Time 26.2 Seconds (9.4-12.1)
[2021-03-30] MEDS: Lactulose Oral Soln 20 GM/30 ML UDC PO SCH ×4 (09:06→22:30)
[2021-03-30] MEDS: Aspirin Enteric Coated 81 MG Tablet PO SCH (09:06)
[2021-03-30] MEDS: Vitamin B Complex/Vit C/Vit E 1 EACH TABLET PO SCH (09:06)
[2021-03-30] MEDS: Vitamin E 200 UNIT (90MG) CAPSULE PO SCH (09:07)
[2021-03-30] MEDS: Sucralfate 1 GM TABLET PO SCH ×4 (09:07→22:29)
[2021-03-30] MEDS: allopurinoL 100 MG TABLET PO SCH (09:07)
[2021-03-30] MEDS: Nystatin POWDER 30 GM BOTTLE TP SCH ×3 (09:08→22:30)
[2021-03-30] MEDS: DilTIAZem CD (24hr) 240 MG CAP.ER.24H PO SCH (09:15)
[2021-03-30] MEDS: Metoprolol XL (24 HR) Succ 25 MG TAB.ER.24H PO SCH ×2 (09:15→22:29)
[2021-03-30] MEDS: Furosemide 40 MG TABLET PO SCH (09:16)
[2021-03-30] MEDS: *HR* OxyCODONE/APAP 10/325 TABLET PO PRN ×2 (12:19→22:30)
[2021-03-30] MEDS ORDERED: *HR* Warfarin 7.5 MG TABLET PO ONE (18:00)
[2021-03-31 06:23] LABS: INR 2.3; Prothrombin Time 26.1 Seconds (9.4-12.1)
[2021-03-31] MEDS: Sucralfate 1 GM TABLET PO SCH ×4 (06:38→22:15)
[2021-03-31] MEDS: *HR* OxyCODONE/APAP 10/325 TABLET PO PRN ×2 (06:57→22:15)
[2021-03-31] MEDS: Metoprolol XL (24 HR) Succ 25 MG TAB.ER.24H PO SCH ×2 (10:02→22:15)
[2021-03-31] MEDS: DilTIAZem CD (24hr) 240 MG CAP.ER.24H PO SCH (10:02)
[2021-03-31] MEDS: Vitamin E 200 UNIT (90MG) CAPSULE PO SCH (10:02)
[2021-03-31] MEDS: Aspirin Enteric Coated 81 MG Tablet PO SCH (10:02)
[2021-03-31] MEDS: Vitamin B Complex/Vit C/Vit E 1 EACH TABLET PO SCH (10:02)
[2021-03-31] MEDS: allopurinoL 100 MG TABLET PO SCH (10:03)
[2021-03-31] MEDS: Lactulose Oral Soln 20 GM/30 ML UDC PO SCH ×4 (10:03→22:15)
[2021-03-31] MEDS: Furosemide 40 MG TABLET PO SCH (10:03)
[2021-03-31] MEDS: Nystatin POWDER 30 GM BOTTLE TP SCH ×3 (10:03→22:16)
[2021-03-31] MEDS: Acetaminophen 325 MG TABLET PO PRN (14:06)
[2021-03-31] MEDS ORDERED: *HR* Warfarin 7.5 MG TABLET PO ONE (18:00)
[2021-04-01 06:29] LABS: INR 2.4; Prothrombin Time 27.3 Seconds (9.4-12.1)
[2021-04-01] MEDS: Vitamin E 200 UNIT (90MG) CAPSULE PO SCH (08:17)
[2021-04-01] MEDS: Furosemide 40 MG TABLET PO SCH (08:18)
[2021-04-01] MEDS: Metoprolol XL (24 HR) Succ 25 MG TAB.ER.24H PO SCH ×2 (08:18→21:39)
[2021-04-01] MEDS: Nystatin POWDER 30 GM BOTTLE TP SCH ×3 (08:18→21:41)
[2021-04-01] MEDS: allopurinoL 100 MG TABLET PO SCH (08:18)
[2021-04-01] MEDS: Vitamin B Complex/Vit C/Vit E 1 EACH TABLET PO SCH (08:18)
[2021-04-01] MEDS: DilTIAZem CD (24hr) 240 MG CAP.ER.24H PO SCH (08:18)
[2021-04-01] MEDS: Lactulose Oral Soln 20 GM/30 ML UDC PO SCH ×4 (08:18→21:40)
[2021-04-01] MEDS: Aspirin Enteric Coated 81 MG Tablet PO SCH (08:18)
[2021-04-01] MEDS: Sucralfate 1 GM TABLET PO SCH ×4 (08:18→21:38)
[2021-04-01] MEDS: *HR* OxyCODONE/APAP 10/325 TABLET PO PRN ×2 (08:24→17:45)
[2021-04-01] MEDS ORDERED: *HR* Warfarin 7.5 MG TABLET PO ONE (18:00)
[2021-04-02] MEDS: Sucralfate 1 GM TABLET PO SCH ×4 (06:16→20:11)
[2021-04-02 06:31] LABS: INR 2.5; Prothrombin Time 28.1 Seconds (9.4-12.1)
[2021-04-02] MEDS: allopurinoL 100 MG TABLET PO SCH (08:16)
[2021-04-02] MEDS: DilTIAZem CD (24hr) 240 MG CAP.ER.24H PO SCH (08:16)
[2021-04-02] MEDS: Metoprolol XL (24 HR) Succ 25 MG TAB.ER.24H PO SCH ×2 (08:16→20:11)
[2021-04-02] MEDS: Vitamin E 200 UNIT (90MG) CAPSULE PO SCH (08:16)
[2021-04-02] MEDS: *HR* OxyCODONE/APAP 10/325 TABLET PO PRN ×2 (08:16→16:54)
[2021-04-02] MEDS: Nystatin POWDER 30 GM BOTTLE TP SCH ×3 (08:17→20:12)
[2021-04-02] MEDS: Vitamin B Complex/Vit C/Vit E 1 EACH TABLET PO SCH (08:17)
[2021-04-02] MEDS: Aspirin Enteric Coated 81 MG Tablet PO SCH (08:17)
[2021-04-02] MEDS: Furosemide 40 MG TABLET PO SCH (08:17)
[2021-04-02] MEDS: Lactulose Oral Soln 20 GM/30 ML UDC PO SCH ×4 (08:17→20:10)
[2021-04-02] MEDS ORDERED: *HR* Warfarin 3 MG TABLET PO ONE (18:00)
[2021-04-02] MEDS: Acetaminophen 325 MG TABLET PO PRN (20:22)
[2021-04-03 07:57] LABS: INR 2.5; Prothrombin Time 27.8 Seconds (9.4-12.1)
[2021-04-03] MEDS: DilTIAZem CD (24hr) 240 MG CAP.ER.24H PO SCH (08:38)
[2021-04-03] MEDS: Aspirin Enteric Coated 81 MG Tablet PO SCH (08:38)
[2021-04-03] MEDS: Vitamin B Complex/Vit C/Vit E 1 EACH TABLET PO SCH (08:38)
[2021-04-03] MEDS: Sucralfate 1 GM TABLET PO SCH ×4 (08:38→20:12)
[2021-04-03] MEDS: Vitamin E 200 UNIT (90MG) CAPSULE PO SCH (08:39)
[2021-04-03] MEDS: Lactulose Oral Soln 20 GM/30 ML UDC PO SCH ×4 (08:39→20:13)
[2021-04-03] MEDS: Metoprolol XL (24 HR) Succ 25 MG TAB.ER.24H PO SCH ×2 (08:39→20:16)
[2021-04-03] MEDS: Furosemide 40 MG TABLET PO SCH (08:39)
[2021-04-03] MEDS: allopurinoL 100 MG TABLET PO SCH (08:39)
[2021-04-03] MEDS: *HR* OxyCODONE/APAP 10/325 TABLET PO PRN ×2 (08:39→16:30)
[2021-04-03] MEDS: Nystatin POWDER 30 GM BOTTLE TP SCH ×3 (08:40→20:14)
[2021-04-03] MEDS ORDERED: *HR* Warfarin 7.5 MG TABLET PO ONE (18:00)
[2021-04-03] MEDS: Acetaminophen 325 MG TABLET PO PRN (20:12)
[2021-04-04 07:26] LABS: Basophils % 0.4 %; Eosinophils # 0.1 K/mcL (0.0-0.6); Eosinophils % 2.7 %; Hematocrit 37.5 % (37.5-50.1); Hemoglobin 11.2 g/dL (12.9-16.9); Immature Granulocytes % 0.2 % (0-4); Lymphocytes # 1.3 K/mcL (0.6-4.6); Lymphocytes % 28.9 %; Mean Corpuscular HGB Conc 29.9 g/dL (31.6-35.5); Mean Corpuscular Volume 97.2 fL (83.0-100.0); Mean Platelet Volume 9.2 fL (9.4-12.4); Monocytes # 0.6 K/mcL (0.0-1.3); Monocytes % 13.5 %; Neutrophils # 2.4 K/mcL (1.6-8.9); Platelet Count 205 K/mcL (140-400); Red Blood Count 3.86 M/mcL (4.19-5.50); Red Cell Distribution Width 16.9 % (11.5-14.5); Segmented Neutrophils % 54.3 %; White Blood Count 4.5 K/mcL (4.3-11.1)
[2021-04-04 07:37] LABS: INR 2.5; Prothrombin Time 27.9 Seconds (9.4-12.1)
[2021-04-04] MEDS: Lactulose Oral Soln 20 GM/30 ML UDC PO SCH ×4 (07:38→21:31)
[2021-04-04] MEDS: Aspirin Enteric Coated 81 MG Tablet PO SCH (07:38)
[2021-04-04] MEDS: DilTIAZem CD (24hr) 240 MG CAP.ER.24H PO SCH (07:39)
[2021-04-04] MEDS: Sucralfate 1 GM TABLET PO SCH ×4 (07:39→21:31)
[2021-04-04] MEDS: Vitamin E 200 UNIT (90MG) CAPSULE PO SCH (07:39)
[2021-04-04] MEDS: Furosemide 40 MG TABLET PO SCH (07:39)
[2021-04-04] MEDS: Vitamin B Complex/Vit C/Vit E 1 EACH TABLET PO SCH (07:40)
[2021-04-04] MEDS: Metoprolol XL (24 HR) Succ 25 MG TAB.ER.24H PO SCH ×2 (07:40→21:31)
[2021-04-04] MEDS: allopurinoL 100 MG TABLET PO SCH (07:40)
[2021-04-04] MEDS: *HR* OxyCODONE/APAP 10/325 TABLET PO PRN ×2 (07:42→17:32)
[2021-04-04 07:48] LABS: BUN/Creatinine Ratio 10 (6-26); Blood Urea Nitrogen 13 mg/dL (6-20); Carbon Dioxide 39 mEq/L (23-29); Chloride 99 mEq/L (98-107); Glucose 62 mg/dL (70-105); Osmolality,Calculated 292 (280-300); Potassium 4.8 mEq/L (3.5-5.1); Sodium 142 mEq/L (136-145); eGFR For African Americans > 60 (> 60); eGFR For Non-African Americans 57 (> 60)
[2021-04-04] MEDS: Nystatin POWDER 30 GM BOTTLE TP SCH ×3 (08:01→21:37)
[2021-04-04] MEDS: Furosemide 40 MG/4 ML VIAL IVP SCH ×2 (12:14→22:36)
[2021-04-04] MEDS: Albumin 25% 25gram/100mL 12.5 GM/50 ML IV.SOLN IVPB SCH ×2 (12:14→21:32)
[2021-04-04] MEDS ORDERED: *HR* Warfarin 7.5 MG TABLET PO ONE (18:00)
[2021-04-04] MEDS: Acetaminophen 325 MG TABLET PO PRN (21:31)
[2021-04-04] MEDS: Cholecalciferol (D-3) 1,000 UNIT (25MCG) TABLET PO SCH (21:31)
[2021-04-05] MEDS: Sucralfate 1 GM TABLET PO SCH ×4 (05:49→20:26)
[2021-04-05] MEDS: *HR* OxyCODONE/APAP 10/325 TABLET PO PRN ×2 (05:56→17:33)
[2021-04-05 07:21] LABS: INR 2.4; Prothrombin Time 26.6 Seconds (9.4-12.1)
[2021-04-05] MEDS: Aspirin Enteric Coated 81 MG Tablet PO SCH (08:53)
[2021-04-05] MEDS: Vitamin E 200 UNIT (90MG) CAPSULE PO SCH (08:53)
[2021-04-05] MEDS: allopurinoL 100 MG TABLET PO SCH (08:54)
[2021-04-05] MEDS: Vitamin B Complex/Vit C/Vit E 1 EACH TABLET PO SCH (08:54)
[2021-04-05] MEDS: Metoprolol XL (24 HR) Succ 25 MG TAB.ER.24H PO SCH ×2 (08:54→20:26)
[2021-04-05] MEDS: DilTIAZem CD (24hr) 240 MG CAP.ER.24H PO SCH (08:54)
[2021-04-05] MEDS: Lactulose Oral Soln 20 GM/30 ML UDC PO SCH ×4 (08:54→20:26)
[2021-04-05] MEDS: Nystatin POWDER 30 GM BOTTLE TP SCH ×3 (08:55→20:26)
[2021-04-05] MEDS: Albumin 25% 25gram/100mL 12.5 GM/50 ML IV.SOLN IVPB SCH ×2 (10:26→20:27)
[2021-04-05] MEDS: Furosemide 40 MG/4 ML VIAL IVP SCH ×2 (12:08→21:30)
[2021-04-05] MEDS ORDERED: *HR* Warfarin 7.5 MG TABLET PO ONE (18:00)
[2021-04-05] MEDS: Acetaminophen 325 MG TABLET PO PRN (20:26)
[2021-04-06 07:20] LABS: INR 2.5; Prothrombin Time 28.6 Seconds (9.4-12.1)
[2021-04-06] MEDS: Vitamin B Complex/Vit C/Vit E 1 EACH TABLET PO SCH (08:52)
[2021-04-06] MEDS: Lactulose Oral Soln 20 GM/30 ML UDC PO SCH ×4 (08:52→21:10)
[2021-04-06] MEDS: Vitamin E 200 UNIT (90MG) CAPSULE PO SCH (08:52)
[2021-04-06] MEDS: DilTIAZem CD (24hr) 240 MG CAP.ER.24H PO SCH (08:53)
[2021-04-06] MEDS: allopurinoL 100 MG TABLET PO SCH (08:53)
[2021-04-06] MEDS: Aspirin Enteric Coated 81 MG Tablet PO SCH (08:53)
[2021-04-06] MEDS: Nystatin POWDER 30 GM BOTTLE TP SCH ×3 (08:54→21:10)
[2021-04-06] MEDS: Sucralfate 1 GM TABLET PO SCH ×4 (08:54→21:10)
[2021-04-06] MEDS: Metoprolol XL (24 HR) Succ 25 MG TAB.ER.24H PO SCH ×2 (08:54→21:10)
[2021-04-06] MEDS: *HR* OxyCODONE/APAP 10/325 TABLET PO PRN ×2 (08:58→21:09)
[2021-04-06] MEDS: Furosemide 40 MG/4 ML VIAL IVP SCH ×2 (12:17→21:30)
[2021-04-06] MEDS ORDERED: *HR* Warfarin 7.5 MG TABLET PO ONE (18:00)
[2021-04-07 07:15] LABS: INR 2.5; Prothrombin Time 27.9 Seconds (9.4-12.1)
[2021-04-07] MEDS: allopurinoL 100 MG TABLET PO SCH (07:46)
[2021-04-07] MEDS: Metoprolol XL (24 HR) Succ 25 MG TAB.ER.24H PO SCH ×2 (07:46→22:14)
[2021-04-07] MEDS: Aspirin Enteric Coated 81 MG Tablet PO SCH (07:46)
[2021-04-07] MEDS: Vitamin E 200 UNIT (90MG) CAPSULE PO SCH (07:46)
[2021-04-07] MEDS: Sucralfate 1 GM TABLET PO SCH ×4 (07:47→22:14)
[2021-04-07] MEDS: Lactulose Oral Soln 20 GM/30 ML UDC PO SCH ×4 (07:47→22:14)
[2021-04-07] MEDS: DilTIAZem CD (24hr) 240 MG CAP.ER.24H PO SCH (07:47)
[2021-04-07] MEDS: Vitamin B Complex/Vit C/Vit E 1 EACH TABLET PO SCH (07:47)
[2021-04-07] MEDS: Nystatin POWDER 30 GM BOTTLE TP SCH ×3 (07:47→23:09)
[2021-04-07] MEDS: *HR* OxyCODONE/APAP 10/325 TABLET PO PRN ×2 (08:03→22:19)
[2021-04-07] MEDS: Furosemide 40 MG/4 ML VIAL IVP SCH ×2 (11:54→22:55)
[2021-04-07] MEDS: Acetaminophen 325 MG TABLET PO PRN (12:00)
[2021-04-07] MEDS ORDERED: *HR* Warfarin 7.5 MG TABLET PO ONE (18:00)
[2021-04-07 19:55] VITALS: RESP 18
[2021-04-08] MEDS: Sucralfate 1 GM TABLET PO SCH (06:55)
[2021-04-08 07:08] VITALS: TEMP 97.4
[2021-04-08 08:18] LABS: INR 2.9; Prothrombin Time 32.2 Seconds (9.4-12.1)
[2021-04-08 09:44] VITALS: BP 116/66; PULSE 82; O2SAT 99
[2021-04-08] MEDS: Vitamin E 200 UNIT (90MG) CAPSULE PO SCH (09:44)
[2021-04-08] MEDS: Vitamin B Complex/Vit C/Vit E 1 EACH TABLET PO SCH (09:45)
[2021-04-08] MEDS: Aspirin Enteric Coated 81 MG Tablet PO SCH (09:45)
[2021-04-08] MEDS: Metoprolol XL (24 HR) Succ 25 MG TAB.ER.24H PO SCH (09:46)
[2021-04-08] MEDS: allopurinoL 100 MG TABLET PO SCH (09:46)
[2021-04-08] MEDS: DilTIAZem CD (24hr) 240 MG CAP.ER.24H PO SCH (09:46)
[2021-04-08] MEDS: Lactulose Oral Soln 20 GM/30 ML UDC PO SCH (09:47)
[2021-04-08] MEDS: Nystatin POWDER 30 GM BOTTLE TP SCH (09:48)
[2021-04-08] MEDS ORDERED: *HR* Warfarin 2.5 MG TABLET PO ONE (18:00)
== END 2021-04-08 10:27 | disposition home health service (06) | DRG 945 ==
LOC: INPPIK 18:10
PROVIDERS: ADMIT Family Medicine; ATTEND Family Medicine

== ENCOUNTER 2021-04-25 16:15 | Inpatient (IN) ==
[2021-04-25] MEDS ORDERED: *HR* Glimepiride 4 MG TABLET PO PRN (17:06)
[2021-04-25] MEDS ORDERED: Fluticasone Propionate Nasal 50 MCG/SPRAY BOTTLE NS PRN (17:06)
[2021-04-25] MEDS ORDERED: Warfarin perPT PO PRN (18:00)
[2021-04-25] MEDS ORDERED: *HR* Warfarin 2 MG TABLET PO ONE (20:00)
[2021-04-25] MEDS: *HR* Amiodarone 200 MG TABLET PO SCH (20:49)
[2021-04-25] MEDS: Sucralfate 1 GM TABLET PO SCH (20:49)
[2021-04-25] MEDS: Metoprolol XL (24 HR) Succ 50 MG TAB.ER.24H PO SCH (20:52)
[2021-04-25] MEDS: Levalbuterol Neb 1.25 MG/3 ML IH SCH (21:07)
[2021-04-25] MEDS: Lactulose Oral Soln 20 GM/30 ML UDC PO SCH (23:48)
[2021-04-26] MEDS: Levalbuterol Neb 1.25 MG/3 ML IH SCH ×4 (03:29→22:31)
[2021-04-26 04:45] LABS: Basophils % 0.4 %; Eosinophils # 0.2 K/mcL (0.0-0.6); Eosinophils % 3.4 %; Hematocrit 34.7 % (37.5-50.1); Hemoglobin 10.4 g/dL (12.9-16.9); Immature Granulocytes % 0.4 % (0-4); Lymphocytes # 1.1 K/mcL (0.6-4.6); Lymphocytes % 22.5 %; Mean Corpuscular Hemoglobin 29.5 pg (28.0-33.3); Mean Corpuscular Volume 98.3 fL (83.0-100.0); Mean Platelet Volume 9.3 fL (9.4-12.4); Monocytes # 0.6 K/mcL (0.0-1.3); Monocytes % 11.9 %; Neutrophils # 3.1 K/mcL (1.6-8.9); Platelet Count 169 K/mcL (140-400); Red Blood Count 3.53 M/mcL (4.19-5.50); Red Cell Distribution Width 16.3 % (11.5-14.5); Segmented Neutrophils % 61.4 %
[2021-04-26 04:52] LABS: INR 2.4; Prothrombin Time 27.6 Seconds (9.4-12.1)
[2021-04-26 05:12] LABS: Calcium 9.7 mg/dL (8.6-10.3); Potassium 3.7 mEq/L (3.5-5.1)
[2021-04-26] MEDS: Aspirin Enteric Coated 81 MG Tablet PO SCH (08:44)
[2021-04-26] MEDS: Cholecalciferol (D-3) 1,000 UNIT (25MCG) TABLET PO SCH (08:44)
[2021-04-26] MEDS: Sucralfate 1 GM TABLET PO SCH ×4 (08:45→20:19)
[2021-04-26] MEDS: Vitamin B Complex/Vit C/Vit E 1 EACH TABLET PO SCH (08:45)
[2021-04-26] MEDS: Furosemide 40 MG TABLET PO SCH ×2 (08:45→17:10)
[2021-04-26] MEDS: Metoprolol XL (24 HR) Succ 50 MG TAB.ER.24H PO SCH ×2 (08:46→20:19)
[2021-04-26] MEDS: allopurinoL 100 MG TABLET PO SCH (08:46)
[2021-04-26] MEDS: Lactulose Oral Soln 20 GM/30 ML UDC PO SCH ×2 (08:48→21:00)
[2021-04-26] MEDS: *HR* Amiodarone 200 MG TABLET PO SCH ×2 (08:48→20:21)
[2021-04-26] MEDS: Vitamin E 200 UNIT (90MG) CAPSULE PO SCH (08:54)
[2021-04-26] MEDS ORDERED: *HR* Warfarin 7.5 MG TABLET PO SCH (09:00)
[2021-04-26] MEDS ORDERED: Simethicone 80 MG TAB.CHEW PO PRN (11:12)
[2021-04-26] MEDS: Ondansetron ODT 4 MG TAB.RAPDIS SL PRN ×2 (13:40→20:18)
[2021-04-26] MEDS ORDERED: *HR* Warfarin 5 MG TABLET PO ONE (18:00)
[2021-04-27] MEDS: Levalbuterol Neb 1.25 MG/3 ML IH SCH ×4 (04:09→22:00)
[2021-04-27 05:17] LABS: INR 2.5; Prothrombin Time 27.7 Seconds (9.4-12.1)
[2021-04-27] MEDS: Cholecalciferol (D-3) 1,000 UNIT (25MCG) TABLET PO SCH (08:20)
[2021-04-27] MEDS: Spironolactone 25 MG TABLET PO SCH (08:20)
[2021-04-27] MEDS: Furosemide 40 MG TABLET PO SCH ×2 (08:20→16:07)
[2021-04-27] MEDS: allopurinoL 100 MG TABLET PO SCH (08:20)
[2021-04-27] MEDS: Aspirin Enteric Coated 81 MG Tablet PO SCH (08:20)
[2021-04-27] MEDS: Metoprolol XL (24 HR) Succ 50 MG TAB.ER.24H PO SCH ×2 (08:20→21:56)
[2021-04-27] MEDS: Sucralfate 1 GM TABLET PO SCH ×4 (08:20→21:55)
[2021-04-27] MEDS: Vitamin B Complex/Vit C/Vit E 1 EACH TABLET PO SCH (08:21)
[2021-04-27] MEDS: Lactulose Oral Soln 20 GM/30 ML UDC PO SCH ×2 (08:21→21:49)
[2021-04-27] MEDS: Nystatin Cream 15 GM TUBE TP SCH ×3 (08:21→22:03)
[2021-04-27] MEDS: *HR* Amiodarone 200 MG TABLET PO SCH ×2 (08:21→21:56)
[2021-04-27] MEDS: Vitamin E 200 UNIT (90MG) CAPSULE PO SCH (08:21)
[2021-04-27] MEDS: *HR* OxyCODONE Immed Rel 5 MG TABLET PO PRN ×2 (14:26→21:56)
[2021-04-27] MEDS ORDERED: *HR* Warfarin 5 MG TABLET PO ONE (18:00)
[2021-04-28] MEDS: Levalbuterol Neb 1.25 MG/3 ML IH SCH ×4 (03:34→22:31)
[2021-04-28 06:26] LABS: INR 2.4
[2021-04-28] MEDS: Sucralfate 1 GM TABLET PO SCH ×4 (07:47→21:02)
[2021-04-28] MEDS: Furosemide 40 MG TABLET PO SCH ×2 (07:48→16:19)
[2021-04-28] MEDS: Cholecalciferol (D-3) 1,000 UNIT (25MCG) TABLET PO SCH (09:57)
[2021-04-28] MEDS: Aspirin Enteric Coated 81 MG Tablet PO SCH (09:57)
[2021-04-28] MEDS: Vitamin B Complex/Vit C/Vit E 1 EACH TABLET PO SCH (09:57)
[2021-04-28] MEDS: Spironolactone 25 MG TABLET PO SCH (09:57)
[2021-04-28] MEDS: Metoprolol XL (24 HR) Succ 50 MG TAB.ER.24H PO SCH ×2 (09:58→21:02)
[2021-04-28] MEDS: *HR* Amiodarone 200 MG TABLET PO SCH ×2 (09:58→21:03)
[2021-04-28] MEDS: allopurinoL 100 MG TABLET PO SCH (09:58)
[2021-04-28] MEDS: Lactulose Oral Soln 20 GM/30 ML UDC PO SCH ×2 (09:59→20:48)
[2021-04-28] MEDS: Nystatin Cream 15 GM TUBE TP SCH ×3 (10:00→20:55)
[2021-04-28] MEDS: Vitamin E 200 UNIT (90MG) CAPSULE PO SCH (10:10)
[2021-04-28] MEDS: *HR* OxyCODONE Immed Rel 5 MG TABLET PO PRN ×2 (10:17→21:02)
[2021-04-28] MEDS ORDERED: *HR* Warfarin 5 MG TABLET PO ONE (18:00)
[2021-04-28] MEDS: Ondansetron ODT 4 MG TAB.RAPDIS SL PRN (21:02)
[2021-04-29] MEDS: Levalbuterol Neb 1.25 MG/3 ML IH SCH ×4 (04:21→20:33)
[2021-04-29] MEDS: Sucralfate 1 GM TABLET PO SCH ×4 (06:15→20:11)
[2021-04-29 07:12] LABS: INR 2.1; Prothrombin Time 23.7 Seconds (9.4-12.1)
[2021-04-29] MEDS: Furosemide 40 MG TABLET PO SCH ×2 (08:03→16:56)
[2021-04-29] MEDS: *HR* Amiodarone 200 MG TABLET PO SCH ×3 (08:03→20:11)
[2021-04-29] MEDS: allopurinoL 100 MG TABLET PO SCH (08:03)
[2021-04-29] MEDS: Cholecalciferol (D-3) 1,000 UNIT (25MCG) TABLET PO SCH (08:03)
[2021-04-29] MEDS: Aspirin Enteric Coated 81 MG Tablet PO SCH (08:03)
[2021-04-29] MEDS: Lactulose Oral Soln 20 GM/30 ML UDC PO SCH ×2 (08:04→20:12)
[2021-04-29] MEDS: Metoprolol XL (24 HR) Succ 50 MG TAB.ER.24H PO SCH ×2 (08:04→20:11)
[2021-04-29] MEDS: Spironolactone 25 MG TABLET PO SCH (08:20)
[2021-04-29] MEDS: Vitamin B Complex/Vit C/Vit E 1 EACH TABLET PO SCH (08:20)
[2021-04-29] MEDS: Vitamin E 200 UNIT (90MG) CAPSULE PO SCH (08:20)
[2021-04-29] MEDS: Nystatin Cream 15 GM TUBE TP SCH ×2 (08:24→14:41)
[2021-04-29] MEDS ORDERED: *HR* Warfarin 7.5 MG TABLET PO ONE (18:00)
[2021-04-29] MEDS: *HR* OxyCODONE Immed Rel 5 MG TABLET PO PRN (20:11)
[2021-04-30] MEDS: Levalbuterol Neb 1.25 MG/3 ML IH SCH ×4 (03:27→22:10)
[2021-04-30] MEDS: Nystatin Cream 15 GM TUBE TP SCH ×4 (04:20→20:17)
[2021-04-30] MEDS: Sucralfate 1 GM TABLET PO SCH ×4 (06:52→20:16)
[2021-04-30 07:37] LABS: Basophils % 0.5 %; Eosinophils # 0.2 K/mcL (0.0-0.6); Eosinophils % 3.8 %; Hematocrit 35.5 % (37.5-50.1); Hemoglobin 10.6 g/dL (12.9-16.9); Immature Granulocytes % 0.3 % (0-4); Lymphocytes # 1.3 K/mcL (0.6-4.6); Lymphocytes % 22.3 %; Mean Corpuscular HGB Conc 29.9 g/dL (31.6-35.5); Mean Corpuscular Hemoglobin 29.7 pg (28.0-33.3); Mean Corpuscular Volume 99.4 fL (83.0-100.0); Mean Platelet Volume 10.3 fL (9.4-12.4); Monocytes # 0.7 K/mcL (0.0-1.3); Monocytes % 11.7 %; Neutrophils # 3.6 K/mcL (1.6-8.9); Platelet Count 183 K/mcL (140-400); Red Blood Count 3.57 M/mcL (4.19-5.50); Red Cell Distribution Width 16.5 % (11.5-14.5); Segmented Neutrophils % 61.4 %; White Blood Count 5.8 K/mcL (4.3-11.1)
[2021-04-30 07:49] LABS: Prothrombin Time 22.4 Seconds (9.4-12.1)
[2021-04-30] MEDS: allopurinoL 100 MG TABLET PO SCH (08:00)
[2021-04-30] MEDS: *HR* Amiodarone 200 MG TABLET PO SCH ×2 (08:01→20:16)
[2021-04-30] MEDS: Metoprolol XL (24 HR) Succ 50 MG TAB.ER.24H PO SCH ×2 (08:01→20:16)
[2021-04-30] MEDS: Vitamin B Complex/Vit C/Vit E 1 EACH TABLET PO SCH (08:01)
[2021-04-30] MEDS: Spironolactone 25 MG TABLET PO SCH (08:01)
[2021-04-30] MEDS: Aspirin Enteric Coated 81 MG Tablet PO SCH (08:01)
[2021-04-30] MEDS: Furosemide 40 MG TABLET PO SCH ×2 (08:01→16:16)
[2021-04-30] MEDS: Lactulose Oral Soln 20 GM/30 ML UDC PO SCH ×2 (08:01→20:16)
[2021-04-30] MEDS: Cholecalciferol (D-3) 1,000 UNIT (25MCG) TABLET PO SCH (08:01)
[2021-04-30 08:35] LABS: Calcium 9.6 mg/dL (8.6-10.3); Potassium 3.4 mEq/L (3.5-5.1)
[2021-04-30] MEDS: Vitamin E 200 UNIT (90MG) CAPSULE PO SCH (08:47)
[2021-04-30] MEDS ORDERED: *HR* Warfarin 7.5 MG TABLET PO ONE (18:00)
[2021-04-30] MEDS: *HR* OxyCODONE Immed Rel 5 MG TABLET PO PRN (18:54)
[2021-04-30] MEDS: acetaZOLAMIDE 250 MG TABLET PO SCH (20:16)
[2021-05-01] MEDS: Levalbuterol Neb 1.25 MG/3 ML IH SCH (04:58)
[2021-05-01] MEDS ORDERED: Levalbuterol Neb 1.25 MG/3 ML IH PRN (07:02)
[2021-05-01 08:00] LABS: INR 1.9; Prothrombin Time 21.9 Seconds (9.4-12.1)
[2021-05-01] MEDS: Lactulose Oral Soln 20 GM/30 ML UDC PO SCH ×2 (08:17→20:49)
[2021-05-01] MEDS: Metoprolol XL (24 HR) Succ 50 MG TAB.ER.24H PO SCH ×2 (08:18→20:40)
[2021-05-01] MEDS: acetaZOLAMIDE 250 MG TABLET PO SCH ×2 (08:18→20:49)
[2021-05-01] MEDS: Furosemide 40 MG TABLET PO SCH ×2 (08:18→16:35)
[2021-05-01] MEDS: Aspirin Enteric Coated 81 MG Tablet PO SCH (08:18)
[2021-05-01] MEDS: *HR* Amiodarone 200 MG TABLET PO SCH (08:18)
[2021-05-01] MEDS: allopurinoL 100 MG TABLET PO SCH (08:18)
[2021-05-01] MEDS: Cholecalciferol (D-3) 1,000 UNIT (25MCG) TABLET PO SCH (08:19)
[2021-05-01] MEDS: Sucralfate 1 GM TABLET PO SCH ×4 (08:19→20:48)
[2021-05-01] MEDS: Vitamin B Complex/Vit C/Vit E 1 EACH TABLET PO SCH (08:19)
[2021-05-01] MEDS: Vitamin E 200 UNIT (90MG) CAPSULE PO SCH (08:20)
[2021-05-01] MEDS: *HR* OxyCODONE Immed Rel 5 MG TABLET PO PRN ×2 (08:30→20:48)
[2021-05-01] MEDS: Nystatin Cream 15 GM TUBE TP SCH (08:42)
[2021-05-01] MEDS ORDERED: *HR* Warfarin 4 MG TABLET PO ONE (18:00)
[2021-05-01] MEDS: Nystatin POWDER 30 GM BOTTLE TP SCH (20:50)
[2021-05-02 07:55] LABS: Prothrombin Time 22.3 Seconds (9.4-12.1)
[2021-05-02] MEDS: Aspirin Enteric Coated 81 MG Tablet PO SCH (07:57)
[2021-05-02] MEDS: Lactulose Oral Soln 20 GM/30 ML UDC PO SCH ×2 (07:57→20:13)
[2021-05-02] MEDS: Cholecalciferol (D-3) 1,000 UNIT (25MCG) TABLET PO SCH (07:58)
[2021-05-02] MEDS: Vitamin B Complex/Vit C/Vit E 1 EACH TABLET PO SCH (07:58)
[2021-05-02] MEDS: Metoprolol XL (24 HR) Succ 50 MG TAB.ER.24H PO SCH (07:58)
[2021-05-02] MEDS: Sucralfate 1 GM TABLET PO SCH ×4 (07:58→20:12)
[2021-05-02] MEDS: acetaZOLAMIDE 250 MG TABLET PO SCH ×2 (07:58→20:12)
[2021-05-02] MEDS: Furosemide 40 MG TABLET PO SCH ×2 (07:58→16:26)
[2021-05-02] MEDS: allopurinoL 100 MG TABLET PO SCH (07:58)
[2021-05-02] MEDS: *HR* Amiodarone 200 MG TABLET PO SCH (07:58)
[2021-05-02] MEDS: Vitamin E 200 UNIT (90MG) CAPSULE PO SCH (07:59)
[2021-05-02] MEDS: Nystatin POWDER 30 GM BOTTLE TP SCH ×2 (08:01→20:13)
[2021-05-02] MEDS ORDERED: *HR* Warfarin 7.5 MG TABLET PO ONE (18:00)
[2021-05-02] MEDS: *HR* OxyCODONE Immed Rel 5 MG TABLET PO PRN (20:13)
[2021-05-03] MEDS: Metoprolol XL (24 HR) Succ 50 MG TAB.ER.24H PO SCH ×3 (01:51→20:05)
[2021-05-03 07:27] LABS: Basophils % 0.2 %; Eosinophils # 0.2 K/mcL (0.0-0.6); Eosinophils % 3.6 %; Hematocrit 35.1 % (37.5-50.1); Hemoglobin 10.7 g/dL (12.9-16.9); Immature Granulocytes % 0.2 % (0-4); Lymphocytes # 1.3 K/mcL (0.6-4.6); Lymphocytes % 25.3 %; Mean Corpuscular HGB Conc 30.5 g/dL (31.6-35.5); Mean Corpuscular Hemoglobin 29.8 pg (28.0-33.3); Mean Corpuscular Volume 97.8 fL (83.0-100.0); Mean Platelet Volume 9.8 fL (9.4-12.4); Monocytes # 0.6 K/mcL (0.0-1.3); Monocytes % 12.5 %; Neutrophils # 2.9 K/mcL (1.6-8.9); Platelet Count 177 K/mcL (140-400); Red Blood Count 3.59 M/mcL (4.19-5.50); Red Cell Distribution Width 16.5 % (11.5-14.5); Segmented Neutrophils % 58.2 %
[2021-05-03 07:46] LABS: Prothrombin Time 23.1 Seconds (9.4-12.1)
[2021-05-03 08:04] LABS: Albumin 3.7 g/dL (3.5-5.7); Albumin/Globulin Ratio 1.3 (1.1-2.2); Bilirubin,Total 1.1 mg/dL (0.3-1.0); Calcium 9.4 mg/dL (8.6-10.3); Globulin 2.8 g/dL (2.4-3.5); Potassium 3.9 mEq/L (3.5-5.1); Total Protein 6.5 g/dL (6.4-8.9)
[2021-05-03] MEDS: Furosemide 40 MG TABLET PO SCH ×2 (08:10→17:35)
[2021-05-03] MEDS: Sucralfate 1 GM TABLET PO SCH ×4 (08:10→20:05)
[2021-05-03] MEDS: acetaZOLAMIDE 250 MG TABLET PO SCH ×2 (08:43→20:05)
[2021-05-03] MEDS: *HR* Amiodarone 200 MG TABLET PO SCH (08:43)
[2021-05-03] MEDS: Lactulose Oral Soln 20 GM/30 ML UDC PO SCH ×2 (08:43→20:04)
[2021-05-03] MEDS: allopurinoL 100 MG TABLET PO SCH (08:43)
[2021-05-03] MEDS: Vitamin E 200 UNIT (90MG) CAPSULE PO SCH (08:43)
[2021-05-03] MEDS: Cholecalciferol (D-3) 1,000 UNIT (25MCG) TABLET PO SCH (08:43)
[2021-05-03] MEDS: Vitamin B Complex/Vit C/Vit E 1 EACH TABLET PO SCH (08:43)
[2021-05-03] MEDS: Aspirin Enteric Coated 81 MG Tablet PO SCH (08:43)
[2021-05-03] MEDS: Nystatin POWDER 30 GM BOTTLE TP SCH ×2 (08:44→20:05)
[2021-05-03] MEDS ORDERED: *HR* Warfarin 2 MG TABLET PO ONE (18:00)
[2021-05-04 07:08] LABS: INR 2.1; Prothrombin Time 23.6 Seconds (9.4-12.1)
[2021-05-04] MEDS: *HR* Amiodarone 200 MG TABLET PO SCH (09:02)
[2021-05-04] MEDS: Vitamin E 200 UNIT (90MG) CAPSULE PO SCH (09:02)
[2021-05-04] MEDS: Sucralfate 1 GM TABLET PO SCH ×4 (09:02→21:29)
[2021-05-04] MEDS: Aspirin Enteric Coated 81 MG Tablet PO SCH (09:02)
[2021-05-04] MEDS: allopurinoL 100 MG TABLET PO SCH (09:02)
[2021-05-04] MEDS: Cholecalciferol (D-3) 1,000 UNIT (25MCG) TABLET PO SCH (09:02)
[2021-05-04] MEDS: Vitamin B Complex/Vit C/Vit E 1 EACH TABLET PO SCH (09:02)
[2021-05-04] MEDS: Furosemide 40 MG TABLET PO SCH ×2 (09:02→17:34)
[2021-05-04] MEDS: Metoprolol XL (24 HR) Succ 50 MG TAB.ER.24H PO SCH ×2 (09:03→21:32)
[2021-05-04] MEDS: Lactulose Oral Soln 20 GM/30 ML UDC PO SCH ×2 (09:03→21:32)
[2021-05-04] MEDS: Nystatin POWDER 30 GM BOTTLE TP SCH ×2 (09:07→21:33)
[2021-05-04] MEDS: *HR* OxyCODONE Immed Rel 5 MG TABLET PO PRN ×2 (09:14→21:30)
[2021-05-04] MEDS ORDERED: *HR* Warfarin 7.5 MG TABLET PO ONE (18:00)
[2021-05-05 06:16] LABS: INR 2.1; Prothrombin Time 23.5 Seconds (9.4-12.1)
[2021-05-05] MEDS: Sucralfate 1 GM TABLET PO SCH ×2 (06:38→12:08)
[2021-05-05 07:41] VITALS: BP 127/80; PULSE 71; RESP 20; TEMP 97.7; O2SAT 100
[2021-05-05] MEDS: Furosemide 40 MG TABLET PO SCH (08:44)
[2021-05-05] MEDS: allopurinoL 100 MG TABLET PO SCH (08:45)
[2021-05-05] MEDS: *HR* Amiodarone 200 MG TABLET PO SCH (08:45)
[2021-05-05] MEDS: Metoprolol XL (24 HR) Succ 50 MG TAB.ER.24H PO SCH (08:45)
[2021-05-05] MEDS: Lactulose Oral Soln 20 GM/30 ML UDC PO SCH (08:45)
[2021-05-05] MEDS: Nystatin POWDER 30 GM BOTTLE TP SCH (08:45)
[2021-05-05] MEDS: Vitamin B Complex/Vit C/Vit E 1 EACH TABLET PO SCH (08:45)
[2021-05-05] MEDS: Aspirin Enteric Coated 81 MG Tablet PO SCH (08:45)
[2021-05-05] MEDS: Cholecalciferol (D-3) 1,000 UNIT (25MCG) TABLET PO SCH (08:45)
[2021-05-05] MEDS: Vitamin E 200 UNIT (90MG) CAPSULE PO SCH (08:45)
[2021-05-05] MEDS: *HR* OxyCODONE Immed Rel 5 MG TABLET PO PRN (08:50)
== END 2021-05-05 12:20 | disposition home health service (06) | DRG 945 ==
LOC: INPPIK 19:13
PROVIDERS: ADMIT Family Medicine; ATTEND Family Medicine